=== PATIENT | male | born 1995 | race Two or more races ===

== ENCOUNTER 2016-02-14 15:36 | Emergency (ER) | payer OTHER ==
--- NOTE | 2016-02-14 18:14 | RAD ---
CHEST 2 VIEWS HISTORY: Vomiting and chest pain. Fever. Frontal and lateral chest radiographs dated 02/14/2016. COMPARISON: None. FINDINGS: LUNG VOLUMES: Hyperinflation. FOCAL AIRSPACE OPACITY: No gross airspace consolidation. PLEURAL EFFUSION: None. CARDIOMEDIASTINAL SILHOUETTE: Nonenlarged. PNEUMOTHORAX: None identified. OSSEOUS STRUCTURES: No grossly destructive lesions. IMPRESSION: No acute cardiopulmonary process noted. Hyperinflation, which can represent exuberant inspiratory effort in a younger individual versus obstructive pulmonary process.
[2016-02-14] MEDS ORDERED: IBUPROFEN 600 MG TABLET ONE (18:35)
== END 2016-02-14 18:50 | disposition home or self-care (01) ==
LOC: ED 15:36
DX: J09.X2 Influenza due to identified novel influenza A virus with other respiratory manifestations (principal); R05 Cough
CPT/HCPCS: 71020; 87804; 99283 ×2; A9270